=== PATIENT | female | born 1980 | race Caucasian/White ===

== ENCOUNTER 2022-09-22 15:06 | Emergency (ER) | payer MEDICAID ==
[~2022-09-22] VITALS: Ht 165.1 cm; Wt 80.0 kg
[2022-09-22 15:20] VITALS: BP 120/88
[2022-09-22] MEDS ORDERED: proparacaine 0.5% ophthalmic drops 15ml EACHEYE ONE (16:10)
== END 2022-09-22 17:00 | disposition home or self-care (01) ==
LOC: ER 15:06
DX: T16.2XXA Foreign body in left ear, initial encounter (principal); Z88.1 Allergy status to other antibiotic agents; X58.XXXA Exposure to other specified factors, initial encounter; Y93.89 Activity, other specified; Y92.89 Other specified places as the place of occurrence of the external cause; Y99.8 Other external cause status
CPT/HCPCS: 99283